=== PATIENT | female | born 1960 | race Caucasian/White ===

== ENCOUNTER 2019-08-29 10:05 | Observation (INO) | payer BC ==
[2019-08-29] MEDS ORDERED: IPRATROPIUM-ALBUTEROL 3 ML NEB INHALATION STA (10:28)
[2019-08-29] MEDS ORDERED: methylPREDNISolone SOD SUCCI 125 MG/2 ML VIAL IV STA (10:28)
--- NOTE | 2019-08-29 10:31 | ED ---
General Adult HPI - General Chief complaint: Shortness of Breath Stated complaint: SOB Time Seen by Provider: 08/29/19 10:13 Source: patient, RN notes reviewed Mode of arrival: ambulatory Limitations: no limitations - History of Present Illness Initial comments: Patient is a pleasant 59-year-old female presenting to the emergency Department with cough and difficulty breathing. Onset of symptoms was less than a week ago. Prior to this patient did have sore throat and sinus drainage. That has resolved. Patient since then has had a cough with thick yellow sputum. Patient does have some wheezing associated with this. No fevers. Patient gets similar symptoms yearly associated with bronchitis. Patient is a former smoker. No leg pain or leg swelling. No fever. - Related Data Allergies Allergy/AdvReac Type Severity Reaction Status Date / Time banana Allergy Unknown Verified 08/29/19 10:13 Childhood egg Allergy Unknown Verified 08/29/19 10:13 Childhood Review of Systems ROS Statement: Those systems with pertinent positive or pertinent negative responses have been documented in the HPI. ROS Other: All systems not noted in ROS Statement are negative. Constitutional: Denies: fever Eyes: Denies: eye pain ENT: Reports: as per HPI. Denies: ear pain Respiratory: Reports: cough, dyspnea Cardiovascular: Denies: palpitations Endocrine: Denies: fatigue Gastrointestinal: Denies: abdominal pain Genitourinary: Denies: dysuria Musculoskeletal: Denies: back pain Skin: Denies: rash Neurological: Denies: weakness Past Medical History Past Medical History: Pneumonia History of Any Multi-Drug Resistant Organisms: None Reported Past Surgical History: Hysterectomy, Tonsillectomy Past Psychological History: No Psychological Hx Reported Smoking Status: Former smoker Past Alcohol Use History: Occasional Past Drug Use History: Marijuana General Exam Limitations: no limitations General appearance: alert, in no apparent distress Head exam: Present: normocephalic Eye exam: Present: normal appearance Respiratory exam: Present: wheezes Cardiovascular Exam: Present: tachycardia GI/Abdominal exam: Present: soft. Absent: tenderness Extremities exam: Present: normal inspection. Absent: pedal edema, calf tenderness Neurological exam: Present: alert Psychiatric exam: Present: normal affect, normal mood Skin exam: Present: normal color Course Vital Signs 08/29/19 08/29/19 08/29/19 10:08 10:38 10:47 Temperature 98.2 F Pulse Rate 101 H 88 90 Respiratory 17 Rate Blood Pressure 172/108 O2 Sat by Pulse 97 Oximetry EKG Findings - EKG Comments: EKG Findings:: Normal sinus rhythm 74. MI 150. QRS 84. QT 416. QTC 461. Normal axis. Normal QRS. No acute ST change. Medical Decision Making - Medical Decision Making Patient reevaluated and somewhat improved. Lung sounds only somewhat improved as well. Patient and family updated on results and plan. Dr. Mckeon has been paged for admission covering for hospital call. - Lab Data Result diagrams: 08/29/19 10:25 08/29/19 10:25 Lab Results 08/29/19 08/29/19 08/29/19 Range/Units 10:25 10:25 10:25 WBC 10.4 (3.8-10.6) k/uL RBC 5.35 (3.80-5.40) m/uL Hgb 15.2 (11.4-16.0) gm/dL Hct 47.0 H (34.0-46.0) % MCV 87.9 (80.0-100.0) fL MCH 28.5 (25.0-35.0) pg MCHC 32.4 (31.0-37.0) g/dL RDW 13.3 (11.5-15.5) % Plt Count 297 (150-450) k/uL Neutrophils % 65 % Lymphocytes % 21 % Monocytes % 6 % Eosinophils % 6 % Basophils % 1 % Neutrophils # 6.8 (1.3-7.7) k/uL Lymphocytes # 2.2 (1.0-4.8) k/uL Monocytes # 0.6 (0-1.0) k/uL Eosinophils # 0.6 (0-0.7) k/uL Basophils # 0.1 (0-0.2) k/uL PT 10.5 (9.0-12.0) sec INR 1.0 (<1.2) APTT 25.4 (22.0-30.0) sec Sodium 139 (137-145) mmol/L Potassium 4.5 (3.5-5.1) mmol/L Chloride 105 (98-107) mmol/L Carbon Dioxide 22 (22-30) mmol/L Anion Gap 12 mmol/L BUN 15 (7-17) mg/dL Creatinine 0.67 (0.52-1.04) mg/dL Est GFR (CKD-EPI)AfAm >90 (>60 ml/min/1.73 sqM) Est GFR (CKD-EPI)NonAf >90 (>60 ml/min/1.73 sqM) Glucose 93 (74-99) mg/dL Plasma Lactic Acid Chidi (0.7-2.0) mmol/L Calcium 10.0 (8.4-10.2) mg/dL Total Bilirubin 1.6 H (0.2-1.3) mg/dL AST 30 (14-36) U/L ALT 18 (4-34) U/L Alkaline Phosphatase 124 (38-126) U/L Total Protein 7.9 (6.3-8.2) g/dL Albumin 4.7 (3.5-5.0) g/dL Influenza Type A RNA (Not Detectd) Influenza Type B (PCR) (Not Detectd) 08/29/19 08/29/19 Range/Units 10:30 10:49 WBC (3.8-10.6) k/uL RBC (3.80-5.40) m/uL Hgb (11.4-16.0) gm/dL Hct (34.0-46.0) % MCV (80.0-100.0) fL MCH (25.0-35.0) pg MCHC (31.0-37.0) g/dL RDW (11.5-15.5) % Plt Count (150-450) k/uL Neutrophils % % Lymphocytes % % Monocytes % % Eosinophils % % Basophils % % Neutrophils # (1.3-7.7) k/uL Lymphocytes # (1.0-4.8) k/uL Monocytes # (0-1.0) k/uL Eosinophils # (0-0.7) k/uL Basophils # (0-0.2) k/uL PT (9.0-12.0) sec INR (<1.2) APTT (22.0-30.0) sec Sodium (137-145) mmol/L Potassium (3.5-5.1) mmol/L Chloride (98-107) mmol/L Carbon Dioxide (22-30) mmol/L Anion Gap mmol/L BUN (7-17) mg/dL Creatinine (0.52-1.04) mg/dL Est GFR (CKD-EPI)AfAm (>60 ml/min/1.73 sqM) Est GFR (CKD-EPI)NonAf (>60 ml/min/1.73 sqM) Glucose (74-99) mg/dL Plasma Lactic Acid Chidi 0.8 (0.7-2.0) mmol/L Calcium (8.4-10.2) mg/dL Total Bilirubin (0.2-1.3) mg/dL AST (14-36) U/L ALT (4-34) U/L Alkaline Phosphatase (38-126) U/L Total Protein (6.3-8.2) g/dL Albumin (3.5-5.0) g/dL Influenza Type A RNA Not Detected (Not Detectd) Influenza Type B (PCR) Not Detected (Not Detectd) - Radiology Data Radiology results: image reviewed (Chest x-ray shows no acute process) Disposition Clinical Impression: Acute exacerbation of chronic obstructive pulmonary disease Disposition: ADMITTED IP TO THIS HOSP Is patient prescribed a controlled substance at d/c from ED?: No Referrals: Nonstaff,Physician [Primary Care Provider] - 1-2 days Decision Time: 12:04
[2019-08-29 11:03] LABS: Basophils # (A) 0.1 k/uL (0-0.2); Basophils % (A) 1 %; Eosinophils # (A) 0.6 k/uL (0-0.7); Eosinophils % (A) 6 %; HGB 15.2 gm/dL (11.4-16.0); Lymphocytes # (A) 2.2 k/uL (1.0-4.8); Lymphocytes % (A) 21 %; MCH 28.5 pg (25.0-35.0); MCHC 32.4 g/dL (31.0-37.0); MCV 87.9 fL (80.0-100.0); Mean Platelet Volume 8.2; Monocytes # (A) 0.6 k/uL (0-1.0); Monocytes % (A) 6 %; Neutrophils # (A) 6.8 k/uL (1.3-7.7); Neutrophils % (A) 65 %; Platelet Count 297 k/uL (150-450); RBC 5.35 m/uL (3.80-5.40); RDW 13.3 % (11.5-15.5); WBC 10.4 k/uL (3.8-10.6)
[2019-08-29 11:10] LABS: ALT 18 U/L (4-34); AST 30 U/L (14-36); African American GFR (CKD) >90 (>60 ml/min/1.73 sqM); Albumin 4.7 g/dL (3.5-5.0); Alkaline Phosphatase 124 U/L (38-126); Anion Gap 12 mmol/L; Blood Urea Nitrogen 15 mg/dL (7-17); Carbon Dioxide 22 mmol/L (22-30); Chloride 105 mmol/L (98-107); Glucose 93 mg/dL (74-99); Non-African American GFR(CKD) >90 (>60 ml/min/1.73 sqM); Potassium 4.5 mmol/L (3.5-5.1); Sodium 139 mmol/L (137-145); Total Bilirubin 1.6 mg/dL (0.2-1.3); Total Protein 7.9 g/dL (6.3-8.2)
--- NOTE | 2019-08-29 11:22 | XR ---
EXAMINATION TYPE: XR chest 2V DATE OF EXAM: 08/29/2019 COMPARISON: NONE TECHNIQUE: PA and lateral views submitted. HISTORY: Difficulty breathing FINDINGS: The lungs are clear and there is no pneumothorax, pleural effusion, or focal pneumonia. Hyperinflat ion noted. Hypertrophic and degenerative change of the spine. No overt failure. Arthropathy of the sh oulders. Heart size normal. IMPRESSION: 1. Correlate for asthma or COPD.
[2019-08-29 11:29] LABS: Partial Thromboplastin Time 25.4 sec (22.0-30.0); Prothrombin Time 10.5 sec (9.0-12.0)
[2019-08-29] MEDS ORDERED: IPRATROPIUM-ALBUTEROL 3 ML NEB INHALATION PRN (12:05)
[2019-08-29] MEDS ORDERED: LISINOPRIL 20 MG TAB PO STA (13:30)
[2019-08-29] MEDS: IPRATROPIUM-ALBUTEROL 3 ML NEB INHALATION SCH ×2 (15:55→19:40)
[2019-08-29] MEDS ORDERED: LORATADINE-PSEUDOEPH 5-120 MG 1 EACH TAB.ER.12H PO PRN (16:45)
[2019-08-29] MEDS ORDERED: guaiFENesin-DM 100-10MG/5ML 10 ML CUP PO PRN (16:45)
--- NOTE | 2019-08-29 16:59 | P.HPIM ---
History of Present Illness 59-year-old pleasant female came in with compensative shortness of breath has been going on for about a week much worse since yesterday patient today morning felt the quite a bit of pressure in the chest she took her Laila-D and felt better patient was having sore throat sinus drainage has been taking doxycycline for last 5 days with some improvement in symptoms patient is comparing of cough with yellowish sputum production patient is able to produce more after Laila-D and aspirin and doxycycline. Patient had similar symptoms every year. Patient used to be a smoker quit smoking years ago never diagnosed with COPD p atient was wheezing quite a bit at the time of admission saying pain improved after Breathing treatments. Patient denied any flulike symptoms fever chills. Review of Systems REVIEW OF SYSTEMS: CONSTITUTIONAL: No fever, no malaise, no fatigue. HEENT: No recent visual problems or hearing problems. Denied any sore throat. CARDIOVASCULAR: No chest pain, orthopnea, PND, no palpitations, no syncope. PULMONARY: no hemoptysis. GASTROINTESTINAL: No diarrhea, no nausea, no vomiting, no abdominal pain. NEUROLOGICAL: No headaches, no weakness, no numbness. HEMATOLOGICAL: Denies any bleeding or petechiae. GENITOURINARY: Denies any burning micturition, frequency, or urgency. MUSCULOSKELETAL/RHEUMATOLOGICAL: Denies any joint pain, swelling, or any muscle pain. ENDOCRINE: Denies any polyuria or polydipsia. The rest of the 14-point review of systems is negative. Past Medical History Past Medical History: Pneumonia Additional Past Medical History / Comment(s): Bronchitis yearly, occasional damien rrhea, pt states either a gastric or colon benign polyp-cannot remember which, UTI, arthritis bilateral hands. History of Any Multi-Drug Resistant Organisms: None Reported Past Surgical History: Hysterectomy, Tonsillectomy Additional Past Surgical History / Comment(s): D&C, EGDs, colonoscopy Past Anesthesia/Blood Transfusion Reactions: Motion Sickness Additional Past Anesthesia/Blood Transfusion Reaction / Comment(s): Pt has received blood in past without reaction. Smoking Status: Former smoker - Past Family History Father Family Medical History: Cancer, Renal Disease, Vascular Disorder Additional Family Medical History / Comment(s): Father has dialysis, AICD, prostate cancer, stents in his legs. Mother Family Medical History: Cancer Additional Family Medical History / Comment(s): Mother of lung cancer. Medications and Allergies Home Medications Medication Instructions Recorded Confirmed Type Doxycycline Hyclate [Vibramycin] 100 mg PO BID 08/29/19 08/29/19 History Fexofenadine/Pseudoephedrine 1 tab PO Q12H PRN 08/29/19 08/29/19 History [Laila-D 12 Hour Tablet] Guaifen/Dextromethorphan/PE 5 ml PO Q6H PRN 08/29/19 08/29/19 History [Mucinex Fast-Max Congest-Cough] Allergies Allergy/AdvReac Type Severity Reaction Status Date / Time egg Allergy Rash/Hives/ Verified 08/29/19 12:13 Nausea/Vomt ing banana AdvReac Nausea & Verified 08/29/19 12:13 Vomiting Physical Exam Vitals: Vital Signs Temp Pulse Pulse Resp BP BP BP 08/29/19 16:06 88 08/29/19 15:55 88 08/29/19 15:49 99 165/95 08/29/19 15:00 98.3 F 98 18 196/126 199/120 08/29/19 13:29 153/103 08/29/19 12:24 98.4 F 89 17 173/108 08/29/19 10:47 90 08/29/19 10:38 88 08/29/19 10:08 98.2 F 101 H 17 172/108 Pulse Ox 08/29/19 16:06 08/29/19 15:55 08/29/19 15:49 94 L 08/29/19 15:00 94 L 08/29/19 13:29 08/29/19 12:24 95 08/29/19 10:47 08/29/19 10:38 08/29/19 10:08 97 Intake and Output 08/29/19 08/29/19 08/29/19 06:59 14:59 22:59 Other: Weight 72.938 kg PHYSICAL EXAMINATION: GENERAL: The patient is alert and oriented x3, not in any acute distress. Well developed, well nourished. HEENT: Pupils are round and equally reacting to light. EOMI. No scleral icterus. No conjunctival pallor. Normocephalic, atraumatic. No pharyngeal erythema. No thyromegaly. CARDIOVASCULAR: S1 and S2 present. No murmurs, rubs, or gallops. PULMONARY: Good air entry with significant expiratory wheezing patient is not in respiratory distress without oxygen. ABDOMEN: Soft, nontender, nondistended, normoactive bowel sounds. No palpable organomegaly. MUSCULOSKELETAL: No joint swelling or deformity. EXTREMITIES: No cyanosis, clubbing, or pedal edema. NEUROLOGICAL: Gross neurological examination did not reveal any focal deficits. SKIN: No rashes. Results CBC & Chem 7: 08/29/19 10:25 08/29/19 10:25 Labs: Abnormal Lab Results - Last 24 Hours (Table) 08/29/19 08/29/19 Range/Units 10:25 10:25 Hct 47.0 H (34.0-46.0) % Total Bilirubin 1.6 H (0.2-1.3) mg/dL Thrombosis Risk Factor Assmnt - Choose All That Apply Any of the Below Risk Factors Present?: Yes Each Factor Represents 1 point: Abnormal pulmonary function (COPD), Age 41-60 years Other Risk Factors: No Other congenital or acquired thrombophilia - If yes, enter type in comment: No Thrombosis Risk Factor Assessment Total Risk Factor Score: 2 Thrombosis Risk Factor Assessment Level: Low Risk Assessment and Plan Plan: -Short of breath seconded to COPD exenteration patient was started on a treatments patient was started on IV steroids which will be continued ON THE DOSING TO 40 TWICE A DAY PATIENT IS EXPECTED TO IMPROVE SIGNIFICANT LIMITED TOMORROW MOST PROBABLY PATIENT CAN BE DISCHARGED TOMORROW. PATIENT WILL WILL BE STARTED ON AZITHROMYCIN MAY HAVE BEEN NOT REQUIRE ANTIBIOTIC UPON DISCHARGE. She will need an outpatient already function testing -Occasional marijuana use: Counseling was provided
[2019-08-29] MEDS ORDERED: methylPREDNISolone SOD SUCCI 125 MG/2 ML VIAL IV SCH (18:00)
[2019-08-29] MEDS: SODIUM CHLORIDE 0.9% 1,000 ML IV SCH ×2 (18:05→21:12)
[2019-08-29] MEDS: ACETAMINOPHEN TAB 325 MG TAB PO PRN (19:26)
[2019-08-29] MEDS: methylPREDNISolone SOD SUCCI 40 MG/ML 1 ML VIAL IV SCH (21:12)
[2019-08-30] MEDS: ACETAMINOPHEN TAB 325 MG TAB PO PRN (02:43)
[2019-08-30] MEDS: IPRATROPIUM-ALBUTEROL 3 ML NEB INHALATION SCH ×3 (08:17→15:57)
[2019-08-30] MEDS: methylPREDNISolone SOD SUCCI 40 MG/ML 1 ML VIAL IV SCH (08:43)
[2019-08-30] MEDS: SODIUM CHLORIDE 0.9% 1,000 ML IV SCH (08:44)
[2019-08-30] MEDS ORDERED: AZITHROMYCIN 500 MG TAB PO SCH (09:00)
[2019-08-30 15:26] VITALS: BP 154/74; PULSE 108; RESP 16; TEMP 98
--- NOTE | 2019-08-30 16:16 | P.DS ---
Providers Date of admission: 08/29/19 12:08 Attending physician: Amanda Mckeon Primary care physician: Physician Nonstaff Hospital Course: 59-year-old pleasant female came in with compensative shortness of breath has been going on for about a week much worse since yesterday patient today morning felt the quite a bit of pressure in the chest she took her Laila-D and felt better patient was having sore throat sinus drainage has been taking doxycycline for last 5 days with some improvement in symptoms patient is comparing of cough with yellowish sputum production patient is able to produce more after Laila-D and aspirin and doxycycline. Patient had similar symptoms every year. Patient used to be a smoker quit smoking years ago never diagnosed with COPD patient was wheezing quite a bit at the time of admission saying pain improved after Breathing treatments. Patient denied any flulike symptoms fever chills. 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 Well developed, well nourished. HEENT: Pupils are round and equally reacting to light. EOMI. No scleral icterus. No conjunctival pallor. Normocephalic, atraumatic. No pharyngeal erythema. No thyromegaly. CARDIOVASCULAR: S1 and S2 present. No murmurs, rubs, or gallops. PULMONARY: Chest is clear to auscultation, no wheezing or crackles. ABDOMEN: Soft, nontender, nondistended, normoactive bowel sounds. No palpable organomegaly. MUSCULOSKELETAL: No joint swelling or deformity. EXTREMITIES: No cyanosis, clubbing, or pedal edema. NEUROLOGICAL: Gross neurological examination did not reveal any focal deficits. SKIN: No rashes. -COPD exacerbation For rest of the medical problems has physician course please refer to my HPI from yesterday Plan - Discharge Summary Discharge Rx Participant: No New Discharge Prescriptions: New Fluticasone/Salmeterol [Advair 250-50 Diskus] 1 inhalation PO BID #1 inhaler Ipratropium-Albuterol Nebulize [Duoneb 0.5 mg-3 mg/3 ml Soln] 1 neb INHALATION QID PRN #90 neb PRN Reason: Shortness Of Breath Or Wheezing Famotidine [Pepcid] 20 mg PO BID #30 tablet predniSONE 10 mg PO DAILY #30 tab Albuterol Inhaler [Ventolin Hfa Inhaler] 1 - 2 puff INHALATION Q6HR PRN #1 inhaler PRN Reason: Shortness Of Breath Or Wheezing Azithromycin [Zithromax] 500 mg PO DAILY #3 tab Discontinued Doxycycline Hyclate [Vibramycin] 100 mg PO BID No Action Fexofenadine/Pseudoephedrine [Laila-D 12 Hour Tablet] 1 tab PO Q12H PRN PRN Reason: Congestion Guaifen/Dextromethorphan/PE [Mucinex Fast-Max Congest-Cough] 5 ml PO Q6H PRN PRN Reason: Cough Discharge Medication List Fexofenadine/Pseudoephedrine [Laila-D 12 Hour Tablet] 1 tab PO Q12H PRN 08/29/19 [History] Guaifen/Dextromethorphan/PE [Mucinex Fast-Max Congest-Cough] 5 ml PO Q6H PRN 08/29/19 [History] Albuterol Inhaler [Ventolin Hfa Inhaler] 1 - 2 puff INHALATION Q6HR PRN #1 inhaler 08/30/19 [Rx] Azithromycin [Zithromax] 500 mg PO DAILY #3 tab 08/30/19 [Rx] Famotidine [Pepcid] 20 mg PO BID #30 tablet 08/30/19 [Rx] Fluticasone/Salmeterol [Advair 250-50 Diskus] 1 inhalation PO BID #1 inhaler 08/30/19 [Rx] Ipratropium-Albuterol Nebulize [Duoneb 0.5 mg-3 mg/3 ml Soln] 1 neb INHALATION QID PRN #90 neb 08/30/19 [Rx] predniSONE 10 mg PO DAILY #30 tab 08/30/19 [Rx] Follow up Appointment(s)/Referral(s): Nonstaff,Physician [Primary Care Provider] - 3 Days Lucila Cat MD [STAFF PHYSICIAN] - 1 Week Patient Instructions/Handouts: COPD (Chronic Obstructive Pulmonary Disease) (DC) Discharge Disposition: HOME SELF-CARE
== END 2019-08-30 15:30 | disposition home or self-care (01) ==
LOC: EC 10:05 → 6NMEDSUR 12:08
PROVIDERS: ADMIT Hospitalist; ATTEND Hospitalist
DX: J44.1 Chronic obstructive pulmonary disease with (acute) exacerbation (principal); M19.041 Primary osteoarthritis, right hand; M19.042 Primary osteoarthritis, left hand; Z87.891 Personal history of nicotine dependence; Z90.710 Acquired absence of both cervix and uterus; Z91.012 Allergy to eggs; Z91.018 Allergy to other foods; Z87.01 Personal history of pneumonia (recurrent); Z87.440 Personal history of urinary (tract) infections; Z86.010 Personal history of colon polyps; Z80.1 Family history of malignant neoplasm of trachea, bronchus and lung; Z84.1 Family history of disorders of kidney and ureter; Z82.49 Family history of ischemic heart disease and other diseases of the circulatory system; Z80.42 Family history of malignant neoplasm of prostate; Z79.899 Other long term (current) drug therapy
CPT/HCPCS: 96376 ×2; 96374; 99285; 36415; 94640 ×4; 93005; 80053; 83605; 85025; 85610; 85730; 87040; 87502; 71046; G0378 ×2; J2920 ×2; J2930

== ENCOUNTER 2020-08-30 06:21 | Emergency (ER) | payer BC ==
[2020-08-30] MEDS ORDERED: FLUORESCEIN STRIPS 1 MG STRIP LEFT EYE STA (06:51)
[2020-08-30] MEDS ORDERED: PROPARACAINE 0.5% OPHTH DROPS 15 ML BTL LEFT EYE STA (06:52)
--- NOTE | 2020-08-30 07:04 | ED ---
General Adult HPI - General Source: patient, RN notes reviewed Mode of arrival: ambulatory Limitations: no limitations <Lexa Dockery - Last Filed: 08/30/20 08:45> <Montserrat Anna - Last Filed: 08/31/20 22:54> - General Chief complaint: Skin/Abscess/Foreign Body Stated complaint: Rash Time Seen by Provider: 08/30/20 06:37 - History of Present Illness Initial comments: 60-year-old female with a past medical history of COPD presents to the emergency room for chief complaint of rash. Patient has a rash that started Sunday. States before the rash appeared her scalp was itching. States she then got a red bump in her forehead. It is has then spread on the right side of her face. Patient states her lymph nodes are swollen. No fevers. States her right eye is irritated.Patient has no other complaints at this time including shortness of breath, chest pain, abdominal pain, nausea or vomiting, headache, or visual changes. (Lexa Dockery) - Related Data Home Medications Medication Instructions Recorded Confirmed Fexofenadine/Pseudoephedrine 1 tab PO Q12H PRN 08/29/19 08/29/19 [Laila-D 12 Hour Tablet] Guaifen/Dextromethorphan/PE 5 ml PO Q6H PRN 08/29/19 08/29/19 [Mucinex Fast-Max Congest-Cough] Previous Rx's Medication Instructions Recorded Albuterol Inhaler (Mhu) [Ventolin 1 - 2 puff INHALATION Q6HR PRN #1 08/30/19 Hfa Inhaler (Mhu)] inhaler Azithromycin [Zithromax] 500 mg PO DAILY #3 tab 08/30/19 Famotidine [Pepcid] 20 mg PO BID #30 tablet 08/30/19 Fluticasone/Salmeterol [Advair 1 inhalation PO BID #1 inhaler 08/30/19 250-50 Diskus] Ipratropium-Albuterol Nebulize 1 neb INHALATION QID PRN #90 neb 08/30/19 [Duoneb 0.5 mg-3 mg/3 ml Soln] predniSONE 10 mg PO DAILY #30 tab 08/30/19 predniSONE 50 mg PO DAILY #5 tablet 03/15/21 valACYclovir HCL [Valtrex] 1,000 mg PO TID #21 tablet 08/30/20 Allergies Allergy/AdvReac Type Severity Reaction Status Date / Time egg Allergy Rash/Hives/ Verified 08/30/20 06:30 Nausea/Vomt ing banana AdvReac Nausea & Verified 08/30/20 06:30 Vomiting Review of Systems ROS Other: All systems not noted in ROS Statement are negative. <Lexa Dockery P - Last Filed: 08/30/20 08:45> ROS Other: All systems not noted in ROS Statement are negative. <Montserrat Anna A - Last Filed: 08/31/20 22:54> ROS Statement: Those systems with pertinent positive or pertinent negative responses have been documented in the HPI. Past Medical History Past Medical History: COPD, Pneumonia Additional Past Medical History / Comment(s): Bronchitis yearly, occasional diarrhea, pt states either a gastric or colon benign polyp-cannot remember which, UTI, arthritis bilateral hands. History of Any Multi-Drug Resistant Organisms: None Reported Past Surgical History: Hysterectomy, Tonsillectomy Additional Past Surgical History / Comment(s): D&C, EGDs, colonoscopy Past Anesthesia/Blood Transfusion Reactions: Motion Sickness Additional Past Anesthesia/Blood Transfusion Reaction / Comment(s): Pt has received blood in past without reaction. Past Psychological History: No Psychological Hx Reported Smoking Status: Current some day smoker Past Alcohol Use History: Occasional Past Drug Use History: Marijuana - Past Family History Father Family Medical History: Cancer, Renal Disease, Vascular Disorder Additional Family Medical History / Comment(s): Father has dialysis, AICD, prostate cancer, stents in his legs. Mother Family Medical History: Cancer Additional Family Medical History / Comment(s): Mother of lung cancer. <Lexa Dockery P - Last Filed: 08/30/20 08:45> General Exam Limitations: no limitations General appearance: alert, in no apparent distress Head exam: Present: atraumatic, normocephalic, normal inspection Eye exam: Present: PERRL, EOMI, conjunctival injection, other (Patient has erythema with yellow drainage noted on forehead as well as right-sided face down to her right ear). Absent: scleral icterus, periorbital swelling ENT exam: Present: normal exam, mucous membranes moist Neck exam: Present: normal inspection, full ROM. Absent: tenderness Respiratory exam: Present: normal lung sounds bilaterally. Absent: respiratory distress, wheezes Cardiovascular Exam: Present: regular rate, normal rhythm, normal heart sounds. Absent: systolic murmur, diastolic murmur, rubs, gallop, clicks GI/Abdominal exam: Present: soft, normal bowel sounds. Absent: distended, tenderness Neurological exam: Present: alert <Lexa Dockery - Last Filed: 08/30/20 08:45> Course Vital Signs 08/30/20 08/30/20 06:26 08:05 Temperature 98.5 F 98.1 F Pulse Rate 99 82 Respiratory 18 16 Rate Blood Pressure 170/99 148/89 O2 Sat by Pulse 97 98 Oximetry Medical Decision Making <Lexa Dockery - Last Filed: 08/30/20 08:45> <Montserrat Anna - Last Filed: 08/31/20 22:54> - Medical Decision Making Vitals are stable. Mildly hypertensive likely secondary to anxiety. Patient does have erythematous lesions noted on the right side of the forehead and temporal area. This was treated by pruritus. States the area is itching now. Patient states her right eye has also been red for the past few days. Skin exam is consistent with shingles. I did stain the eye with forcing staining visually with Wood's lamp. No visualization of dendritic lesions at this time. Visual acuity is 20/40 right eye with glasses, 20/50 left eye with glasses. I did discuss this case with ophthalmology and they will see her in the office today to ensure no ocular involvement. We will start patient on oral steroids and valacyclovir (Lexa Dockery) I was available for consultation in the emergency department. The history and physical exam were done by the midlevel provider. I was consulted for this patients care. I reviewed the case with the midlevel provider and based on their presentation of the patient, I agree with the assessment, medical decision making and plan of care as documented. Chart was dictated using [employer] dictation software. Attempts were made to correct any dictation errors however some typographical errors may persist. (Montserrat Anna) Disposition Is patient prescribed a controlled substance at d/c from ED?: No Time of Disposition: 08:06 <Lexa Dockery - Last Filed: 08/30/20 08:45> <Montserrat Anna - Last Filed: 08/31/20 22:54> Clinical Impression: Herpes zoster Disposition: HOME SELF-CARE Condition: Good Instructions (If sedation given, give patient instructions): Shingles (ED) Additional Instructions: Please take steroids and antiviral as directed. Please go to ophthalmology office this am. Follow up with primary care as well. Return to the emergency room for any worsening symptoms. Dr. Nguyen [address] [facility] phone [phone] Prescriptions: predniSONE 50 mg PO DAILY #5 tablet valACYclovir HCL [Valtrex] 1,000 mg PO TID #21 tablet Referrals: Nonstaff,Physician [Primary Care Provider] - 1-2 days Spencer Nguyen MD [STAFF PHYSICIAN] - 1-2 days
[2020-08-30 08:07] VITALS: BP 148/89; PULSE 82; RESP 16; TEMP 98.1
== END 2020-08-30 08:57 | disposition home or self-care (01) ==
LOC: EC 06:21
DX: B02.9 Zoster without complications (principal); J44.9 Chronic obstructive pulmonary disease, unspecified; M19.041 Primary osteoarthritis, right hand; M19.042 Primary osteoarthritis, left hand; F17.200 Nicotine dependence, unspecified, uncomplicated; Z79.51 Long term (current) use of inhaled steroids; Z79.52 Long term (current) use of systemic steroids; Z80.1 Family history of malignant neoplasm of trachea, bronchus and lung; Z87.19 Personal history of other diseases of the digestive system
CPT/HCPCS: 99282

== ENCOUNTER 2021-04-26 10:47 | Emergency (ER) | payer BC ==
[2021-04-26 11:33] VITALS: TEMP 98.4
[2021-04-26 14:48] VITALS: BP 149/93; PULSE 82; RESP 20
[2021-04-26] MEDS ORDERED: BAMLANIVIMAB (EUA) 700 MG, ETESEVIMAB (EUA) 1,400 MG in SODIUM CHLORIDE 0.9% 50 ML IVPB ONE (15:30)
[2021-04-26] MEDS ORDERED: SODIUM CHLORIDE 0.9% 50 ML IVPB ONE (15:30)
--- NOTE | 2021-04-26 16:10 | ED ---
URI HPI - General Chief Complaint: Upper Respiratory Infection Stated Complaint: covid symptoms Time Seen by Provider: 04/26/21 13:57 Source: patient, RN notes reviewed Mode of arrival: ambulatory Limitations: no limitations - History of Present Illness Initial Comments: Patient is a 60-year-old female with history of COPD, presenting to the emergency department with complaints of cough and congestion noted over the past 4 days. She states she took it an at home Covid test today and it was positive so she came in for evaluation. She is requesting a covid test to confirm her at home test. She states she called her doctor yesterday with her symptoms and was started on azithromycin. She is reporting some mild right ear pain, loss of taste and smell as well. She denies any abdominal pain, no nausea or vomiting, no chest pain. She denies any fevers. She has no further complaints. Her vital signs are stable upon arrival. - Related Data Home Medications Medication Instructions Recorded Confirmed Fexofenadine/Pseudoephedrine 1 tab PO Q12H PRN 08/29/19 08/29/19 [Laila-D 12 Hour Tablet] Guaifen/Dextromethorphan/PE 5 ml PO Q6H PRN 08/29/19 08/29/19 [Mucinex Fast-Max Congest-Cough] Previous Rx's Medication Instructions Recorded Albuterol Inhaler (Mhu) [Ventolin 1 - 2 puff INHALATION Q6HR PRN #1 08/30/19 Hfa Inhaler (Mhu)] inhaler Azithromycin [Zithromax] 500 mg PO DAILY #3 tab 08/30/19 Famotidine [Pepcid] 20 mg PO BID #30 tablet 08/30/19 Fluticasone/Salmeterol [Advair 1 inhalation PO BID #1 inhaler 08/30/19 250-50 Diskus] Ipratropium-Albuterol Nebulize 1 neb INHALATION QID PRN #90 neb 08/30/19 [Duoneb 0.5 mg-3 mg/3 ml Soln] predniSONE 10 mg PO DAILY #30 tab 08/30/19 predniSONE 50 mg PO DAILY #5 tablet 08/30/20 valACYclovir HCL [Valtrex] 1,000 mg PO TID #21 tablet 08/30/20 Dexamethasone [Decadron] 6 mg PO DAILY 5 Days #5 tablet 04/26/21 Allergies Allergy/AdvReac Type Severity Reaction Status Date / Time egg Allergy Rash/Hives/ Verified 08/30/20 06:30 Nausea/Vomt ing banana AdvReac Nausea & Verified 08/30/20 06:30 Vomiting Review of Systems ROS Statement: Those systems with pertinent positive or pertinent negative responses have been documented in the HPI. ROS Other: All systems not noted in ROS Statement are negative. Past Medical History Past Medical History: COPD, Pneumonia Additional Past Medical History / Comment(s): Bronchitis yearly, occasional diarrhea, pt states either a gastric or colon benign polyp-cannot remember which, UTI, arthritis bilateral hands. History of Any Multi-Drug Resistant Organisms: None Reported Past Surgical History: Hysterectomy, Tonsillectomy Additional Past Surgical History / Comment(s): D&C, EGDs, colonoscopy Past Anesthesia/Blood Transfusion Reactions: Motion Sickness Additional Past Anesthesia/Blood Transfusion Reaction / Comment(s): Pt has received blood in past without reaction. Past Psychological History: No Psychological Hx Reported Smoking Status: Current some day smoker Past Alcohol Use History: Occasional Past Drug Use History: Marijuana - Past Family History Father Family Medical History: Cancer, Renal Disease, Vascular Disorder Additional Family Medical History / Comment(s): Father has dialysis, AICD, prostate cancer, stents in his legs. Mother Family Medical History: Cancer Additional Family Medical History / Comment(s): Mother of lung cancer. General Exam - General Exam Comments Initial Comments: GENERAL: Patient is well-developed and well-nourished. Patient is nontoxic and in no acute distress. HEAD: Atraumatic, normocephalic. EYES: Pupils equal round and reactive to light, extraocular movements intact, sclera anicteric, conjunctiva are normal. Eyelids were unremarkable. ENT: TMs normal, nares patent, oropharynx clear without exudates. Moist mucous membranes. NECK: Normal range of motion, supple without lymphadenopathy or JVD. LUNGS: Unlabored respirations. Breath sounds clear to auscultation bilaterally and equal. No wheezes rales or rhonchi. HEART: Regular rate and rhythm without murmurs, rubs or gallops. ABDOMEN: Soft, nontender, normoactive bowel sounds. No guarding, no rebound. No masses appreciated. : Deferred MUSCULOSKELETAL: Normal extremities with adequate strength and normal range of motion, no pitting or edema. No clubbing or cyanosis. NEUROLOGICAL: Patient is alert and oriented x 3. SKIN: Warm, Dry, normal turgor, no rashes or lesions noted. Limitations: no limitations Course Vital Signs 04/26/21 04/26/21 11:28 14:45 Temperature 98.4 F Pulse Rate 79 82 Respiratory 19 20 Rate Blood Pressure 150/95 149/93 O2 Sat by Pulse 98 97 Oximetry Medical Decision Making - Medical Decision Making Patient is a 60-year-old female here with history of COPD, requesting a test for covid. Just been having symptoms for the past 4 days. Her vital signs are stable, exam is unremarkable. Patient's rapid test is positive today. She did agree monoclonal antibodies, she did receive these without acute side effects. I will prescribe her a course of steroids as well. I discussed with her this is a virus, the tympanic she is currently on most likely will not help her symptoms. I recommended following up with her primary care. She is agreeable as planned. She is stable for discharge. - Lab Data Lab Results 04/26/21 Range/Units 14:26 Coronavirus (PCR) Detected A (Not Detectd) Disposition Clinical Impression: COVID-19 Disposition: HOME SELF-CARE Condition: Stable Instructions (If sedation given, give patient instructions): Coronavirus Disease 2019 (COVID-19) Additional Instructions: Please return to the Emergency Department if symptoms worsen or any other concerns. Your rapid covid test today is positive. Please take steroids as prescribed. May take Tylenol and/or Motrin for any body aches or pains. Follow-up with your primary care as needed. Prescriptions: Dexamethasone [Decadron] 6 mg PO DAILY 5 Days #5 tablet Is patient prescribed a controlled substance at d/c from ED?: No Referrals: Nonstaff,Physician [Primary Care Provider] - 1-2 days Time of Disposition: 16:10
== END 2021-04-26 17:51 | disposition home or self-care (01) ==
LOC: EC 10:47
DX: U07.1 COVID-19 (principal); H92.01 Otalgia, right ear; F17.200 Nicotine dependence, unspecified, uncomplicated; J44.9 Chronic obstructive pulmonary disease, unspecified; Z91.012 Allergy to eggs; Z91.018 Allergy to other foods
CPT/HCPCS: 99283 ×2; 96365; 87635; M0243; J3490